=== PATIENT | female | born 1990 | race Two or more races ===

== ENCOUNTER 2020-12-11 23:46 | Emergency (ER) | payer OTHER ==
[2020-12-12] LABS: BASO # 0.1 x10^3/uL (0.0-0.2); BASO % 0 % (0-3); EOS % 0 % (0-3); HEMATOCRIT 42.8 % (36.0-47.0); HEMOGLOBIN 14.4 g/dL (12.0-15.5); LYMPH # 5.9 x10^3/uL (1.0-4.8); LYMPH % 44 % (24-48); MEAN CORPUSCULAR HEMOGLOBIN 28 pg (25-35); MEAN CORPUSCULAR HGB CONC 34 g/dL (31-37); MEAN CORPUSCULAR VOLUME 83 fL (79-100); MONO # 0.7 x10^3/uL (0.0-1.1); MONO % 5 % (0-9); NEUT # 6.7 x10^3/uL (1.8-7.7); NEUT % 50 % (31-73); PLATELET COUNT 529 x10^3/uL (140-400); RED BLOOD COUNT 5.13 x10^6/uL (3.50-5.40); RED CELL DISTRIBUTION WIDTH 13.3 % (11.5-14.5); WHITE BLOOD COUNT 13.4 x10^3/uL (4.0-11.0)
[2020-12-12] MEDS ORDERED: GENTAMICIN SULFATE 300 MG in IV DEXTROSE 5% 100ML 100 ML IV ONE
[2020-12-12] MEDS ORDERED: ONDANSETRON PF 4 MG/2 ML VIAL. IVP ONE
[2020-12-12] MEDS ORDERED: IV NORMAL SALINE 1000ML BAG 1,000 ML IV ONE
[2020-12-12] MEDS ORDERED: fentaNYL PF VIAL 100 MCG/2 ML VIAL IVP ONE
[2020-12-12] MEDS ORDERED: ceFAZolin SODIUM IV Push 1 GM VIAL. IVP ONE
[2020-12-12 00:06] LABS: CALCIUM 8.8 mg/dL (8.5-10.1); CREATININE 0.7 mg/dL (0.6-1.0); GFR 99.6; POTASSIUM 3.3 mmol/L (3.5-5.1)
[2020-12-12 00:12] LABS: ALBUMIN 4.3 g/dL (3.4-5.0); ALBUMIN/GLOBULIN RATIO 1.2 (1.0-1.7); TOTAL BILIRUBIN 0.3 mg/dL (0.2-1.0); TOTAL PROTEIN 7.8 g/dL (6.4-8.2)
--- NOTE | 2020-12-12 00:20 | RAD ---
XR CHEST 1V INDICATION: trauma COMPARISON STUDY: None. FINDINGS: Lungs: Normal lung volume. No pulmonary mass or consolidation. The tracheobronchial tree and hilar st ructures are normal. Pleura: No pleural effusion or pneumothorax. Heart and Mediastinum: The cardiomediastinal silhouette is normal. The great vessels of the thorax ar e normal. Bones and Soft Tissues: The bones and soft tissues are within normal limits. IMPRESSION: No acute cardiopulmonary process. Electronically signed by: Michael Colunga MD (12/12/2020 12:17 AM) [facility]
--- NOTE | 2020-12-12 00:26 | RAD ---
XR RT TIBIA+FIBULA , XR PELVIS 1-2V, XR FEMUR_RIGHT DATE: 12/11/2020 11:49 PM INDICATION: Pain, trauma COMPARISON: None. FINDINGS/ IMPRESSION: Large soft tissue defect along the lateral aspect of the knee with posttraumatic soft tissue gas, pos sibly within the knee joint. Several opaque densities overlying the proximal fibula may represent for eign bodies, with a few additional ossific densities which probably represent tiny bone fragments. Electronically signed by: Michael Colunga MD (12/12/2020 12:24 AM) [facility]
[2020-12-12] MEDS ORDERED: HYDROmorphone 2 MG/ML VIAL IVP ONE (00:45)
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
--- NOTE | 2020-12-12 00:57 | RAD ---
CT HEAD AND C-SPINE WO Date: 12/12/2020 12:20 AM Clinical Indication: Pain, trauma Comparison: None. Technique: 5 mm axial tomographic images were obtained of the head without contrast. These were view ed on brain and bone windows. CT imaging of the cervical spine was performed without contrast. Coron al and sagittal reformatted images were performed. One or more of the following dose reduction techni ques were utilized: Automated exposure control (AEC), Adjustment of mA and/or kV according to patient size, Use of iterative reconstruction technique such as ASiR, CT scan done according to ALARA and im age gently/image wisely HEAD FINDINGS: The brain parenchyma is normal in attenuation. No intra- or extra-axial mass or fluid collection. No acute hemorrhage. The ventricles are normal in size, shape, and morphology. The conde-white matter navi ction is normal. The basilar cisterns are patent. The visualized paranasal sinuses are normal. The visualized portions of the orbits and globes are no rmal. The mastoid air cells are clear. No aggressive osseous lesion or fracture. CERVICAL SPINE FINDINGS: The cervical spine is normally aligned. No acute fracture. No aggressive lytic or blastic osseous les ion. The intervertebral disc heights are maintained. No high-grade spinal canal stenosis or neural foramin al narrowing. The thyroid gland is normal. No cervical lymphadenopathy. The visualized aerodigestive tract is unrem arkable. The visualized lung apices are clear. IMPRESSION: 1. No acute intracranial process. 2. No acute osseous abnormality of the cervical spine. Electronically signed by: Micahel Colunga MD (12/12/2020 12:55 AM) [facility]
== END 2020-12-12 01:39 | disposition short-term general hospital (02) ==
LOC: ER 23:46
DX: S82.401 Unspecified fracture of shaft of right fibula (principal); Z20.822 Contact with and (suspected) exposure to COVID-19; R10.2 Pelvic and perineal pain; R07.89 Other chest pain; R51.9 Headache, unspecified; M54.2 Cervicalgia; W18.39XA Other fall on same level, initial encounter; Y93.89 Activity, other specified; Y92.89 Other specified places as the place of occurrence of the external cause; Y99.8 Other external cause status
CPT/HCPCS: 36415; 70450; 71045; 72125; 72170; 73590; 80053; 85025; 87426; 96365; 96375; 99285; G0480; J0690; J1170; J1580; J2060; J2405; J3010; J7030; J7060; U0003; U0005; 96361